=== PATIENT | male | born 1985 | race Two or more races ===

== ENCOUNTER 2018-03-31 23:25 | Emergency (ER) | payer SELFPAY ==
[~2018-03-31] VITALS: Ht 177.8 cm; Wt 89.8 kg
--- NOTE | 2018-03-31 23:35 | NUR ---
Pt. ambulated into ED w/ c/o N/V/D since this afternoon, A/Ox4, states he drank from soda fountain at local restaurant and discovered metallic residue in drink, no blood in emesis/stool, abdomen soft/round/non-distended/non-tender to touch, BS active,
[2018-04-01] MEDS ORDERED: DIPHENOXYLATE HCL/ATROP SULF TABLET PO ONE
[2018-04-01] MEDS ORDERED: DIPHENOXYLATE HCL/ATROP SULF TABLET ONE (00:03)
--- NOTE | 2018-04-01 00:16 | NUR ---
Patient discharged to home in stable conditon. Written and verbal after care instructions given. Patient verbalizes understanding of instructions. Pt. d/c w/ prescription per MD order, d/c paper signed, all belongings w/ pt., ambulated w/ steady gait, left in private vehicle, no acute distress,
== END 2018-04-01 00:18 | disposition home or self-care (01) ==
LOC: ER 23:33
DX: K52.9 Noninfective gastroenteritis and colitis, unspecified (principal); J45.909 Unspecified asthma, uncomplicated
CPT/HCPCS: A4663